=== PATIENT | male | born 1940 | race Hispanic/Latino ===

== ENCOUNTER 2022-10-08 09:31 | Emergency (ER) | payer MEDICARE, OTHER ==
[2022-10-08 10:35] LABS: #Eosinphils 0.2 10x3/uL (0.0-0.5); #Monocytes 0.7 10x3/uL (0.0-1.1); #Neutrophils 4.3 10x3/uL (1.5-8.4); %Basophils 0.4 % (0.0-2.0); %Eosinophils 2.5 % (0.0-6.0); %Lymphocytes 26.2 % (18.0-47.0); %Monocytes 9.4 % (0.0-10.0); %Neutrophils 60.9 % (40.0-75.0); Hemoglobin 13.1 g/dL (13.5-17.5); Mean Corpuscular HGB CONC 33.8 g/dL (32.0-36.0); Mean Corpuscular Volume 97.7 fl (81.2-95.1); Mean Platelet Volume 11.8 fl (7.4-10.4); Platelet Count 144 10x3/uL (150-450); RBC Distribution Width 13.1 % (11.5-14.5); Red Blood Cell (RBC) Count 3.97 10x6/uL (4.32-5.72); White Blood Cell (WBC) Count 7.1 10x3/uL (3.5-10.5)
[2022-10-08] MEDS ORDERED: Lidocaine 1% (PF) 30 ML VIAL ONE (10:40)
[2022-10-08 10:48] LABS: ALT (SGPT) 52 U/L (8-55); AST (SGOT) 65 U/L (5-34); Albumin 3.7 g/dL (3.4-4.8); Alkaline Phosphatase 118 U/L (40-110); Anion Gap 20 mmol/L (10-20); BUN (Urea Nitrogen) 15 mg/dL (8.4-25.7); Bilirubin, Total 0.4 mg/dL (0.2-1.2); Calc. Creatinine Clearance 0 mL/min (70-130); Calcium 8.5 mg/dL (7.8-10.44); Carbon Dioxide 17 mmol/L (23-31); Chloride 103 mmol/L (98-107); Estimated GFR 64; Globulin 3.8 g/dL (2.4-3.5); Glucose 336 mg/dL (83-110); Magnesium 1.7 mg/dL (1.6-2.6); Potassium 5.6 mmol/L (3.5-5.1); Protein, Total 7.5 g/dL (5.8-8.1); Sodium 134 mmol/L (136-145)
[2022-10-08] MEDS ORDERED: Morphine 2 MG/ML VIAL ONE (11:15)
[2022-10-08] MEDS ORDERED: Lidocaine 1% w/Epinephrine 1:200K 30 ML VIAL ONE (11:20)
[2022-10-08 11:49] LABS: SARS-CoV-2 NAA Rapid Test Not Detected (NotDetected)
== END 2022-10-08 13:02 | disposition short-term general hospital (02) ==
LOC: CSHERS 09:31
DX: S06.300A Unspecified focal traumatic brain injury without loss of consciousness, initial encounter (principal); I12.9 Hypertensive chronic kidney disease with stage 1 through stage 4 chronic kidney disease, or unspecified chronic kidney disease; E10.22 Type 1 diabetes mellitus with diabetic chronic kidney disease; E78.5 Hyperlipidemia, unspecified; N18.9 Chronic kidney disease, unspecified; J44.9 Chronic obstructive pulmonary disease, unspecified; K21.9 Gastro-esophageal reflux disease without esophagitis; E10.42 Type 1 diabetes mellitus with diabetic polyneuropathy; Z20.822 Contact with and (suspected) exposure to COVID-19; Z86.73 Personal history of transient ischemic attack (TIA), and cerebral infarction without residual deficits; W19.XXXA Unspecified fall, initial encounter
CPT/HCPCS: 70450; 72125; 80053; 82962; 83735; 85025; 93005; 96374; 99285; U0002; 36416; J2001; J2272

== ENCOUNTER 2022-10-31 09:43 | Outpatient (CLI) | payer MEDICARE, MEDICAID | END 2022-10-31 09:44 | disposition home or self-care (01) | LOC: CSHCT 09:43 → EDSTATUS 10:00 | PROVIDERS: ATTEND Neurological Surgery | DX: S06.5X0D Traumatic subdural hemorrhage without loss of consciousness, subsequent encounter (principal) | CPT/HCPCS: 70450 ==

== ENCOUNTER 2023-05-18 21:08 | Inpatient (IN) | payer MEDICARE, MEDICAID ==
[2023-05-18 21:54] LABS: #Monocytes 1.1 10x3/uL (0.0-1.1); #Neutrophils 9.5 10x3/uL (1.5-8.4); %Basophils 0.3 % (0.0-2.0); %Eosinophils 0.2 % (0.0-6.0); %Lymphocytes 12.3 % (18.0-47.0); %Monocytes 9.1 % (0.0-10.0); %Neutrophils 77.8 % (40.0-75.0); Hematocrit 49.9 % (38.8-50.0); Hemoglobin 15.2 g/dL (13.5-17.5); Mean Corpuscular HGB CONC 30.5 g/dL (32.0-36.0); Mean Corpuscular Hemoglobin 31.3 pg (27.0-33.0); Mean Corpuscular Volume 102.9 fl (81.2-95.1); Mean Platelet Volume 12.9 fl (7.4-10.4); Platelet Count 147 10x3/uL (150-450); RBC Distribution Width 15.1 % (11.5-14.5); Red Blood Cell (RBC) Count 4.85 10x6/uL (4.32-5.72); White Blood Cell (WBC) Count 12.3 10x3/uL (3.5-10.5)
[2023-05-18] MEDS ORDERED: Cefepime 2 GM VIAL ONE (21:54)
[2023-05-18] MEDS ORDERED: Vancomycin 1 GM VIAL ONE (21:54)
[2023-05-18 22:08] LABS: ALT (SGPT) 46 U/L (8-55); AST (SGOT) 36 U/L (5-34); Albumin 3.8 g/dL (3.4-4.8); Alkaline Phosphatase 110 U/L (40-110); Anion Gap 19 mmol/L (10-20); BUN (Urea Nitrogen) 52 mg/dL (8.4-25.7); Bilirubin, Total 0.4 mg/dL (0.2-1.2); CK (CPK) 419 U/L (30-200); Calc. Creatinine Clearance 0 mL/min (70-130); Calcium 8.9 mg/dL (7.8-10.44); Carbon Dioxide 18 mmol/L (23-31); Chloride 127 mmol/L (98-107); Estimated GFR 17; Globulin 3.8 g/dL (2.4-3.5); Lipase 20 U/L (8-78); Magnesium 2.9 mg/dL (1.6-2.6); Potassium 4.1 mmol/L (3.5-5.1); Protein, Total 7.6 g/dL (5.8-8.1)
[2023-05-18 22:11] LABS: Glucose 671 mg/dL (83-110); Sodium 160 mmol/L (136-145); Troponin I 0.035 ng/mL (< 0.028)
[2023-05-18 22:25] LABS: Bilirubin Neg (Negative); Blood, Urine Negative (Negative); Clarity Clear (Clear); Glucose, Urine (Dipstick) >=1000 mg/dL (Negative); Ketone, Urine 5 mg/dL (Negative); Leukocyte Negative (Negative); Nitrite Negative (Negative); Protein, Urine (Dipstick) Negative (Neg-Trace); Specific Gravity, Urine 1.015 (1.005-1.030); Urobilinogen Normal mg/dL (Less than 2)
[2023-05-18] MEDS ORDERED: Acetaminophen 650 MG Suppository ONE (22:41)
[2023-05-18 22:45] LABS: RBC/HPF None Seen HPF (0-3)
[2023-05-18 22:46] LABS: CAUTI Indications for Culture Fever or rigors; Squamous Epithelial None Seen HPF (0-3); WBC/HPF 0-3 HPF (0-3)
[2023-05-18 22:47] LABS: Bacteria/HPF None Seen HPF (None Seen)
[2023-05-18 22:48] LABS: Urine Culture Reflex No No
[2023-05-18 23:12] LABS: SARS-CoV-2 NAA Rapid Test Not Detected (NotDetected)
[2023-05-18 23:26] LABS: Anion Gap 16 mmol/L (10-20); BUN (Urea Nitrogen) 50 mg/dL (8.4-25.7); Calc. Creatinine Clearance 0 mL/min (70-130); Calcium 7.6 mg/dL (7.8-10.44); Carbon Dioxide 14 mmol/L (23-31); Chloride 135 mmol/L (98-107); Estimated GFR 21; Glucose 606 mg/dL (83-110); Sodium 161 mmol/L (136-145)
[2023-05-19] MEDS ORDERED: Calcium Gluc 4.6 MEQ/10 ML (100 MG/ML) ONE (01:58)
[2023-05-19 02:36] LABS: Troponin I 0.021 ng/mL (< 0.028)
[2023-05-19 05:28] LABS: Actual Bicarbonate (HCO3v) 19.7 mEq/L (22-28); Base Excess -6.4 mEq/L (-2 - +2); Calcium, Ionized (venous) 1.11 mmol/L (1.16-1.32); Chloride (VBG) 131 mmol/L (98-106); Hematocrit-VBG 41 % (42.0-52.0); Potassium (VBG) 3.76 mmol/L (3.70-5.30); Puncture Site Other Site; RapidComm Collect By CBL; Sodium 167 mmol/L (133-146); pH (venous) 7.295 (7.32-7.43)
[2023-05-19] MEDS ORDERED: INSULIN REGULAR IN 0.9 % NACL 100 UNITS in Premix Bag 1 BAG IVPB SCH ×2 (05:30→05:45)
[2023-05-19] MEDS ORDERED: Acetaminophen 650 MG Suppository PR PRN (05:31)
[2023-05-19] MEDS ORDERED: Ondansetron PF 4 MG/2 ML Vial IVP PRN (05:31)
[2023-05-19] MEDS ORDERED: INSULIN REGULAR IN 0.9 % NACL 100 UNITS/100 ML BAG ONE (05:32)
[2023-05-19] MEDS ORDERED: Ipratropium/Albuterol 3 ML NEB NEB PRN (05:40)
[2023-05-19] MEDS ORDERED: 1/4 NS IV SCH (05:45)
[2023-05-19] MEDS ORDERED: POTASSIUM CHLORIDE IV SCH (05:45)
[2023-05-19] MEDS ORDERED: D5 IV SCH (05:45)
[2023-05-19 07:58] VITALS: BMI 23.3
[2023-05-19] MEDS: Mometasone/Formoterol 200/5 60 PUFF INH SCH ×2 (08:33→19:15)
[2023-05-19] MEDS ORDERED: FLU VACC QS2023(65UP)/MF59C/PF 60 MCG/0.5 ML SYRINGE IM ONE (08:45)
[2023-05-19] MEDS ORDERED: Electrolyte Replacement Protocol 1 EACH IVPB ONE (08:49)
[2023-05-19] MEDS ORDERED: Famotidine/PF 20 mg/2ml Vial SLOW IVP SCH (09:00)
[2023-05-19] MEDS ORDERED: Cefepime 1 GM in Sodium Chloride 0.9% 100 ML IVPB SCH (09:00)
[2023-05-19] MEDS ORDERED: Vancomycin Dose by Levels Sliding Scale (Wt 71-99) FS SCH (10:00)
[2023-05-19 10:40] LABS: Vancomycin, Random 8.9 ug/mL (See Comment)
[2023-05-19 10:45] LABS: Lactic Acid 4.2 mmol/L (0.5-2.2)
[2023-05-19 10:51] LABS: ALT (SGPT) 43 U/L (8-55); AST (SGOT) 69 U/L (5-34); Albumin 3.4 g/dL (3.4-4.8); Alkaline Phosphatase 102 U/L (40-110); Anion Gap 15 mmol/L (10-20); BUN (Urea Nitrogen) 42 mg/dL (8.4-25.7); Bilirubin, Total 0.2 mg/dL (0.2-1.2); Calc. Creatinine Clearance 27 mL/min (70-130); Calcium 8.6 mg/dL (7.8-10.44); Carbon Dioxide 18 mmol/L (23-31); Chloride 137 mmol/L (98-107); Estimated GFR 30; Globulin 3.4 g/dL (2.4-3.5); Glucose 306 mg/dL (83-110); Potassium 3.2 mmol/L (3.5-5.1); Protein, Total 6.8 g/dL (5.8-8.1); Sodium 167 mmol/L (136-145)
[2023-05-19] MEDS ORDERED: Electrolyte Replacement Protocol FS PRN (11:30)
[2023-05-19] MEDS ORDERED: Vancomycin HCl 1 GM in Sodium Chloride 0.9% 250 ML 250 ML IVPB SCH (11:30)
[2023-05-19] MEDS ORDERED: Vancomycin 1 GM in Premix Bag 1 BAG IVPB SCH (12:00)
[2023-05-19] MEDS: Potassium Chloride 20 MEQ in Premix Bag 1 BAG IVPB SCH ×2 (13:46→15:06)
[2023-05-19 13:57] LABS: Anion Gap 15 mmol/L (10-20); BUN (Urea Nitrogen) 39 mg/dL (8.4-25.7); Calc. Creatinine Clearance 31 mL/min (70-130); Calcium 8.5 mg/dL (7.8-10.44); Carbon Dioxide 17 mmol/L (23-31); Chloride 140 mmol/L (98-107); Estimated GFR 37; Glucose 119 mg/dL (83-110); Potassium 3.2 mmol/L (3.5-5.1); Sodium 169 mmol/L (136-145)
[2023-05-19] MEDS ORDERED: Dextrose 5% in Water 1,000 ML IV SCH (14:15)
[2023-05-19] MEDS ORDERED: Potassium Chloride 20 MEQ in Premix Bag 1 BAG IVPB SCH (14:45)
[2023-05-19 17:34] LABS: Anion Gap 16 mmol/L (10-20); BUN (Urea Nitrogen) 36 mg/dL (8.4-25.7); Calc. Creatinine Clearance 33 mL/min (70-130); Calcium 8.2 mg/dL (7.8-10.44); Carbon Dioxide 14 mmol/L (23-31); Chloride 137 mmol/L (98-107); Estimated GFR 39; Glucose 163 mg/dL (83-110); Potassium 3.9 mmol/L (3.5-5.1); Sodium 163 mmol/L (136-145)
[2023-05-19] MEDS ORDERED: Lorazepam 2 MG/ML VIAL SLOW IVP SCH (18:45)
[2023-05-19] MEDS: Cefepime 1 GM in Sodium Chloride 0.9% 100 ML IVPB SCH (19:32)
[2023-05-19 21:15] LABS: Anion Gap 17 mmol/L (10-20); BUN (Urea Nitrogen) 33 mg/dL (8.4-25.7); Calc. Creatinine Clearance 34 mL/min (70-130); Calcium 7.8 mg/dL (7.8-10.44); Carbon Dioxide 13 mmol/L (23-31); Chloride 132 mmol/L (98-107); Estimated GFR 40; Glucose 256 mg/dL (83-110); Potassium 3.8 mmol/L (3.5-5.1)
[2023-05-19 21:17] LABS: Sodium 158 mmol/L (136-145)
[2023-05-20 01:29] LABS: Anion Gap 12 mmol/L (10-20); BUN (Urea Nitrogen) 30 mg/dL (8.4-25.7); Calc. Creatinine Clearance 39 mL/min (70-130); Calcium 7.7 mg/dL (7.8-10.44); Carbon Dioxide 15 mmol/L (23-31); Chloride 132 mmol/L (98-107); Estimated GFR 47; Glucose 130 mg/dL (83-110); Potassium 3.4 mmol/L (3.5-5.1)
[2023-05-20 01:53] LABS: Sodium 156 mmol/L (136-145)
[2023-05-20] MEDS ORDERED: Dextrose 5% w/ 20 mEq KCl 1,000 ML IV SCH (02:00)
[2023-05-20] MEDS ORDERED: Dextrose 50% Abboject 50 ML SYRINGE ONE (03:56)
[2023-05-20] MEDS: Potassium Chloride 20 MEQ in Premix Bag 1 BAG IVPB SCH ×2 (04:09→06:51)
[2023-05-20 05:06] LABS: Anion Gap 11 mmol/L (10-20); BUN (Urea Nitrogen) 27 mg/dL (8.4-25.7); Calc. Creatinine Clearance 41 mL/min (70-130); Calcium 7.1 mg/dL (7.8-10.44); Carbon Dioxide 16 mmol/L (23-31); Chloride 127 mmol/L (98-107); Estimated GFR 50; Glucose 197 mg/dL (83-110); Magnesium 1.7 mg/dL (1.6-2.6); Potassium 3.4 mmol/L (3.5-5.1)
[2023-05-20 05:17] LABS: CK (CPK) 6486 U/L (30-200)
[2023-05-20 05:49] LABS: Sodium 151 mmol/L (136-145)
[2023-05-20] MEDS ORDERED: Magnesium 2 GM/50 ML(in water) 2 GM in Premix Bag 1 BAG IVPB SCH (06:00)
[2023-05-20] MEDS ORDERED: Magnesium Sulfate/D5W 1 GM/100 ML BAG IVPB SCH (06:30)
[2023-05-20] MEDS ORDERED: Potassium Chloride 20 MEQ TAB PO SCH (06:30)
[2023-05-20] MEDS: Mometasone/Formoterol 200/5 60 PUFF INH SCH ×2 (08:18→18:50)
[2023-05-20] MEDS ORDERED: Famotidine/PF 20 mg/2ml Vial SLOW IVP SCH (09:00)
[2023-05-20] MEDS: Cefepime 1 GM in Sodium Chloride 0.9% 100 ML IVPB SCH ×2 (09:14→21:09)
[2023-05-20 10:58] LABS: Vancomycin, Random 10.4 ug/mL (See Comment)
[2023-05-20] MEDS ORDERED: Vancomycin HCl 1 GM in Sodium Chloride 0.9% 250 ML 250 ML IVPB SCH (11:15)
[2023-05-20] MEDS ORDERED: Dextrose 50% Abboject 50 ML SYRINGE SLOW IVP PRN (12:04)
[2023-05-20] MEDS ORDERED: Dextrose 5% in Water 1,000 ML IV PRN (12:04)
[2023-05-20] MEDS ORDERED: Glucagon 1 MG/ML KIT IM PRN (12:04)
[2023-05-20] MEDS: Vancomycin HCl 1 GM in Sodium Chloride 0.9% 250 ML 250 ML IVPB SCH (12:06)
[2023-05-20 12:09] LABS: Hemoglobin A1c 10.2 % (4.0-6.0)
[2023-05-20] MEDS ORDERED: Lantus 1000 UNITS/10 ML VIAL SC SCH (12:15)
[2023-05-20] MEDS: HumaLOG 300 UNITS/3 ML VIAL SC PRN ×3 (12:22→21:20)
[2023-05-20 12:26] LABS: Anion Gap 15 mmol/L (10-20); BUN (Urea Nitrogen) 22 mg/dL (8.4-25.7); Calc. Creatinine Clearance 46 mL/min (70-130); Calcium 7.6 mg/dL (7.8-10.44); Carbon Dioxide 14 mmol/L (23-31); Chloride 120 mmol/L (98-107); Estimated GFR 58; Glucose 328 mg/dL (83-110); Potassium 4.3 mmol/L (3.5-5.1); Sodium 145 mmol/L (136-145)
[2023-05-20 18:36] LABS: Anion Gap 13 mmol/L (10-20); BUN (Urea Nitrogen) 18 mg/dL (8.4-25.7); Calc. Creatinine Clearance 51 mL/min (70-130); Calcium 7.3 mg/dL (7.8-10.44); Carbon Dioxide 14 mmol/L (23-31); Chloride 118 mmol/L (98-107); Estimated GFR 66; Glucose 213 mg/dL (83-110); Sodium 141 mmol/L (136-145)
[2023-05-20] MEDS: Famotidine/PF 20 mg/2ml Vial SLOW IVP SCH (21:08)
[2023-05-21 04:23] LABS: Anion Gap 16 mmol/L (10-20); BUN (Urea Nitrogen) 15 mg/dL (8.4-25.7); Calc. Creatinine Clearance 55 mL/min (70-130); Calcium 7.6 mg/dL (7.8-10.44); Carbon Dioxide 14 mmol/L (23-31); Chloride 114 mmol/L (98-107); Estimated GFR 71; Glucose 235 mg/dL (83-110); Potassium 4.2 mmol/L (3.5-5.1); Sodium 140 mmol/L (136-145)
[2023-05-21 04:30] LABS: #Eosinphils 0.1 10x3/uL (0.0-0.5); #Monocytes 0.7 10x3/uL (0.0-1.1); #Neutrophils 5.2 10x3/uL (1.5-8.4); %Basophils 0.2 % (0.0-2.0); %Eosinophils 1.2 % (0.0-6.0); %Lymphocytes 24.5 % (18.0-47.0); %Neutrophils 64.7 % (40.0-75.0); Hematocrit 36.2 % (38.8-50.0); Hemoglobin 11.6 g/dL (13.5-17.5); Mean Corpuscular Hemoglobin 31.4 pg (27.0-33.0); Mean Corpuscular Volume 98.1 fl (81.2-95.1); Platelet Count 97 10x3/uL (150-450); RBC Distribution Width 13.5 % (11.5-14.5); Red Blood Cell (RBC) Count 3.69 10x6/uL (4.32-5.72); White Blood Cell (WBC) Count 8.1 10x3/uL (3.5-10.5)
[2023-05-21] MEDS: HumaLOG 300 UNITS/3 ML VIAL SC PRN ×5 (06:03→20:10)
[2023-05-21] MEDS: Mometasone/Formoterol 200/5 60 PUFF INH SCH ×2 (06:55→19:02)
[2023-05-21] MEDS: Famotidine/PF 20 mg/2ml Vial SLOW IVP SCH ×2 (07:56→20:10)
[2023-05-21] MEDS ORDERED: Magnesium 2 GM/50 ML(in water) 2 GM in Premix Bag 1 BAG IVPB SCH (08:00)
[2023-05-21] MEDS: Cefepime 1 GM in Sodium Chloride 0.9% 100 ML IVPB SCH ×2 (09:18→20:10)
[2023-05-21 11:38] LABS: Bilirubin Neg (Negative); Blood, Urine 250 (Negative); Clarity Cloudy (Clear); Glucose, Urine (Dipstick) 250 mg/dL (Negative); Ketone, Urine 15 mg/dL (Negative); Leukocyte 25 (Negative); Nitrite Negative (Negative); Protein, Urine (Dipstick) 30 mg/dl (Neg-Trace); Urobilinogen Normal mg/dL (Less than 2)
[2023-05-21 11:48] LABS: Bacteria/HPF Rare-Few HPF (None Seen); CAUTI Indications for Culture Alt mental st,lethar; RBC/HPF Greater than 50 HPF (0-3); Squamous Epithelial None Seen HPF (0-3); WBC/HPF 0-3 HPF (0-3); Yeast-Budding 2+ HPF (None Seen)
[2023-05-21 11:49] LABS: Urine Culture Reflex No No
[2023-05-22] MEDS: HumaLOG 300 UNITS/3 ML VIAL SC PRN ×3 (05:16→12:15)
[2023-05-22] MEDS ORDERED: Acetaminophen 325 MG TAB PER TUBE PRN (05:28)
[2023-05-22 06:34] LABS: Magnesium 2.1 mg/dL (1.6-2.6); Phosphorus 2.2 mg/dL (2.3-4.7)
[2023-05-22] MEDS: Mometasone/Formoterol 200/5 60 PUFF INH SCH ×2 (07:43→19:04)
[2023-05-22] MEDS: Famotidine/PF 20 mg/2ml Vial SLOW IVP SCH ×2 (08:30→21:57)
[2023-05-22] MEDS: Cefepime 1 GM in Sodium Chloride 0.9% 100 ML IVPB SCH ×2 (08:30→21:57)
[2023-05-22] MEDS: Vancomycin HCl 1 GM in Sodium Chloride 0.9% 250 ML 250 ML IVPB SCH (10:34)
[2023-05-22 10:42] LABS: Vancomycin, Trough 4.9 ug/mL
[2023-05-22 11:05] LABS: Anion Gap 18 mmol/L (10-20); BUN (Urea Nitrogen) 15 mg/dL (8.4-25.7); Calc. Creatinine Clearance 59 mL/min (70-130); Calcium 7.3 mg/dL (7.8-10.44); Carbon Dioxide 11 mmol/L (23-31); Chloride 117 mmol/L (98-107); Estimated GFR 77; Glucose 202 mg/dL (83-110); Potassium 4.1 mmol/L (3.5-5.1); Sodium 142 mmol/L (136-145)
[2023-05-23 04:40] LABS: Anion Gap 19 mmol/L (10-20); BUN (Urea Nitrogen) 12 mg/dL (8.4-25.7); Calc. Creatinine Clearance 59 mL/min (70-130); Calcium 8.1 mg/dL (7.8-10.44); Carbon Dioxide 11 mmol/L (23-31); Chloride 115 mmol/L (98-107); Estimated GFR 77; Glucose 196 mg/dL (83-110); Potassium 4.1 mmol/L (3.5-5.1); Sodium 141 mmol/L (136-145)
[2023-05-23] MEDS: Cefepime 1 GM in Sodium Chloride 0.9% 100 ML IVPB SCH ×2 (09:26→20:24)
[2023-05-23] MEDS: Famotidine/PF 20 mg/2ml Vial SLOW IVP SCH ×2 (09:30→20:24)
[2023-05-23] MEDS: Lorazepam 2 MG/ML VIAL SLOW IVP PRN (09:50)
[2023-05-23] MEDS: Morphine 2 MG/ML VIAL SLOW IVP PRN (10:25)
[2023-05-23] MEDS: VANCOMYCIN 1.25 GM/250 ML BAG 1.25 GM in Premix Bag 1 BAG IVPB SCH (10:46)
[2023-05-23] MEDS: Mometasone/Formoterol 200/5 60 PUFF INH SCH ×2 (14:06→19:35)
[2023-05-24] MEDS: Lorazepam 2 MG/ML VIAL SLOW IVP PRN (02:27)
[2023-05-24 05:11] LABS: BUN (Urea Nitrogen) 11 mg/dL (8.4-25.7); Calc. Creatinine Clearance 53 mL/min (70-130); Chloride 115 mmol/L (98-107); Potassium 4.5 mmol/L (3.5-5.1); Sodium 137 mmol/L (136-145)
[2023-05-24 05:12] LABS: Calcium 8.8 mg/dL (7.8-10.44); Estimated GFR 69; Glucose 226 mg/dL (83-110)
[2023-05-24 05:16] LABS: Carbon Dioxide Less than 8 mmol/L (23-31)
[2023-05-24] MEDS ORDERED: Sodium Chloride 0.9% 500 ML IV SCH (05:45)
[2023-05-24] MEDS ORDERED: Sodium Bicarb 50 MEQ/50 ML VIAL IVP SCH (05:45)
[2023-05-24 05:55] LABS: ALV-art Gradient 34.455 mmHg (0-20); Actual Bicarbonate (HCO3a) 8.3 mEq/L (22-28); Base Excess (BEa) -16.8 mEq/L (-2.0 to +3.0); CO2 Tension 19.5 mmHg (35.0-45.0); Calcium, Ionized (arterial) 1.26 mmol/L (1.12-1.30); Carboxyhemoglobin (COHb) 0.2 gm% (0.0-3.0); Hematocrit-ABG 39 % (42.0-52.0); Hemoglobin (Hb) 13.2 g/dL (14.0-18.0); O2 Tension (PaO2), arterial 90.9 mmHg (> 60.0); Potassium - ABG Lab 4.44 mmol/L (3.70-5.30); Puncture Site RBA; pH, Arterial 7.247 (7.35-7.45)
[2023-05-24 06:12] LABS: #Eosinphils 0.1 10x3/uL (0.0-0.5); #Monocytes 0.7 10x3/uL (0.0-1.1); #Neutrophils 3.7 10x3/uL (1.5-8.4); %Basophils 0.3 % (0.0-2.0); %Eosinophils 1.9 % (0.0-6.0); %Lymphocytes 26.6 % (18.0-47.0); %Neutrophils 59.2 % (40.0-75.0); Hematocrit 42.5 % (38.8-50.0); Hemoglobin 13.7 g/dL (13.5-17.5); Mean Corpuscular HGB CONC 32.2 g/dL (32.0-36.0); Mean Corpuscular Hemoglobin 31.9 pg (27.0-33.0); Mean Corpuscular Volume 99.1 fl (81.2-95.1); Mean Platelet Volume 11.5 fl (7.4-10.4); Platelet Count 157 10x3/uL (150-450); Red Blood Cell (RBC) Count 4.29 10x6/uL (4.32-5.72); White Blood Cell (WBC) Count 6.3 10x3/uL (3.5-10.5)
[2023-05-24 06:14] LABS: Lactic Acid 1.2 mmol/L (0.5-2.2)
[2023-05-24] MEDS: Mometasone/Formoterol 200/5 60 PUFF INH SCH ×2 (07:28→20:40)
[2023-05-24 08:41] LABS: Vancomycin, Trough 11.4 ug/mL
[2023-05-24] MEDS: Sodium Chloride 0.9% 1,000 ML IV SCH ×2 (09:44→17:00)
[2023-05-24] MEDS: Cefepime 1 GM in Sodium Chloride 0.9% 100 ML IVPB SCH (09:45)
[2023-05-24] MEDS: Famotidine/PF 20 mg/2ml Vial SLOW IVP SCH ×2 (09:46→21:31)
[2023-05-24] MEDS: VANCOMYCIN 1.25 GM/250 ML BAG 1.25 GM in Premix Bag 1 BAG IVPB SCH (09:47)
[2023-05-25] MEDS: Lorazepam 2 MG/ML VIAL SLOW IVP PRN ×2 (02:35→08:45)
[2023-05-25] MEDS: Sodium Chloride 0.9% 1,000 ML IV SCH ×2 (02:48→08:49)
[2023-05-25] MEDS: Morphine 2 MG/ML VIAL SLOW IVP PRN ×2 (04:12→10:10)
[2023-05-25 05:01] LABS: BUN (Urea Nitrogen) 10 mg/dL (8.4-25.7); Calc. Creatinine Clearance 53 mL/min (70-130); Calcium 8.4 mg/dL (7.8-10.44); Chloride 117 mmol/L (98-107); Estimated GFR 69; Glucose 223 mg/dL (83-110); Potassium 4.4 mmol/L (3.5-5.1); Sodium 137 mmol/L (136-145)
[2023-05-25 05:22] LABS: Carbon Dioxide Less than 8 mmol/L (23-31)
[2023-05-25] MEDS: HumaLOG 300 UNITS/3 ML VIAL SC PRN (07:27)
[2023-05-25] MEDS: Mometasone/Formoterol 200/5 60 PUFF INH SCH (08:25)
[2023-05-25] MEDS: Famotidine/PF 20 mg/2ml Vial SLOW IVP SCH (08:44)
[2023-05-25 09:09] VITALS: BP 99/40; TEMP 97.9
== END 2023-05-25 10:25 | DRG 871 ==
LOC: CSHERS 21:08 → CSHIMCU 05-19 05:21 → CSHTELE 05-22 13:46
PROVIDERS: ADMIT Student in an Organized Health Care Education/Training Program; ATTEND Internal Medicine
PROC: 3E03329 Introduction of Other Anti-infective into Peripheral Vein, Percutaneous Approach (ICD-10-PCS; 2023-05-19)
PROC: 4A033R1 Measurement of Arterial Saturation, Peripheral, Percutaneous Approach (ICD-10-PCS; principal; 2023-05-24)
DX: A41.9 Sepsis, unspecified organism (principal); G93.41 Metabolic encephalopathy; N17.9 Acute kidney failure, unspecified; E87.0 Hyperosmolality and hypernatremia; E87.29 Other acidosis; R65.20 Severe sepsis without septic shock; J44.9 Chronic obstructive pulmonary disease, unspecified; E10.65 Type 1 diabetes mellitus with hyperglycemia; E78.5 Hyperlipidemia, unspecified; K21.9 Gastro-esophageal reflux disease without esophagitis; E10.22 Type 1 diabetes mellitus with diabetic chronic kidney disease; N18.9 Chronic kidney disease, unspecified; I12.9 Hypertensive chronic kidney disease with stage 1 through stage 4 chronic kidney disease, or unspecified chronic kidney disease; Z79.899 Other long term (current) drug therapy; Z79.84 Long term (current) use of oral hypoglycemic drugs; Z79.4 Long term (current) use of insulin; F32.A Depression, unspecified; Z66 Do not resuscitate; Z20.822 Contact with and (suspected) exposure to COVID-19
CPT/HCPCS: 36415; 36416; 36600; 70450; 71045; 74018; 74176; 80048; 80053; 80202; 81001; 82010; 82550; 82805; 83036; 83605; 83690; 83735; 83880; 84100; 84145; 84443; 84484; 85025; 87040; 87086; 87324; 87449; 90471; 90694; 93005; 94760; 94762; 96374; 96375; G0008; J0612; J0692; J1650; J1815; J2060; J2272; J3370; J3475; J3480; J3490; J7030; J7042; J7050; J7070; J7999; S0028